=== PATIENT | female | born 1950 | race African-American/Black ===

== ENCOUNTER 2017-10-08 14:26 | Emergency (ER) | payer OTHER, MEDICAID ==
[~2017-10-08] VITALS: Ht 162.6 cm; Wt 112.0 kg
[2017-10-08 14:44] VITALS: BP 154/69
[2017-10-08] MEDS ORDERED: LIDOCAINE HCL 1% 20ML VIAL (Pyxis) INJ INFIL ONE (15:30)
[2017-10-08] MEDS ORDERED: CEFTRIAXONE SODIUM 1 G/VIAL IM ONE (15:30)
== END 2017-10-08 16:39 | disposition home or self-care (01) ==
LOC: ER 15:50
DX: L03.116 Cellulitis of left lower limb (principal); I10 Essential (primary) hypertension; Z87.891 Personal history of nicotine dependence; Z98.890 Other specified postprocedural states
CPT/HCPCS: 87070; 87077; 87186; 87205; 96372; 99284; J0696; J3490

== ENCOUNTER 2020-07-31 21:56 | Emergency (ER) | payer OTHER, MEDICAID ==
[~2020-07-31] VITALS: Ht 167.6 cm; Wt 113.0 kg
[2020-08-01] MEDS ORDERED: GABA-532 MT (00:08)
[2020-08-01] MEDS ORDERED: HYDR25TA MT (00:08)
[2020-08-01] MEDS ORDERED: AMOX-424 MT (00:09)
[2020-08-01 00:30] VITALS: BP 145/63
== END 2020-08-01 01:04 | disposition home or self-care (01) ==
LOC: ER 21:56
DX: L03.116 Cellulitis of left lower limb (principal); L03.115 Cellulitis of right lower limb; M79.605 Pain in left leg; M79.604 Pain in right leg; G89.29 Other chronic pain; R60.9 Edema, unspecified; I11.9 Hypertensive heart disease without heart failure; Z98.890 Other specified postprocedural states
CPT/HCPCS: 93005; 99283

== ENCOUNTER 2021-02-04 04:12 | Emergency (ER) | payer OTHER, MEDICAID ==
[~2021-02-04] VITALS: Ht 167.6 cm; Wt 107.0 kg
[~2021-02-04 04:12] MED LIST: AMOX-424 MT; GABA-532 MT; HYDR25TA MT
[2021-02-04 04:42] VITALS: BP 161/76
[2021-02-04 08:45] LABS: BASOPHILS % 1.1 % (0.0-2.0); EOSINOPHILS % 3.8 % (0.0-5.0); HEMATOCRIT. 36.9 % (36.0-48.0); HEMOGLOBIN. 12.3 g/dL (12.0-16.0); LYMPHOCYTES % 28.9 % (20.0-50.0); MEAN CORPUSCULAR HEMOGLOBIN 26.4 pg (28.0-32.0); MEAN CORPUSCULAR VOLUME 79.5 fL (81.0-99.0); MEAN PLATELET VOLUME 7.6 fl (7.4-10.4); MONOCYTES % 8.4 % (2.0-8.0); NEUTROPHILS % 57.8 % (40.0-76.0); PLATELET 276 x1000/uL (130-400); RED BLOOD CELL COUNT 4.64 mill/uL (4.2-5.4); RED CELL DISTRIBUTION WIDTH 14.7 % (11.6-14.6)
[2021-02-04 08:48] LABS: CHLORIDE 105 mEq/L (98-107)
[2021-02-10] MEDS ORDERED: NEOM1PAC6 TP (04:28)
[2021-02-10] MEDS ORDERED: BACI3.5O24 TOP (04:28)
[2021-02-10] MEDS ORDERED: SULF1TAB48 PO (04:28)
[2021-02-10] MEDS ORDERED: MUPI1OIN4 TP (04:28)
== END 2021-02-04 10:36 | disposition home or self-care (01) ==
LOC: ER 04:12
DX: R60.0 Localized edema (principal); I11.9 Hypertensive heart disease without heart failure
CPT/HCPCS: 36415; 80053; 83880; 85025; 85379; 93970; 99284

== ENCOUNTER 2023-03-18 14:20 | Emergency (ER) | payer MEDICAID, OTHER ==
[~2023-03-18] VITALS: Ht 167.6 cm; Wt 113.0 kg
[~2023-03-18 14:20] MED LIST changes: +BACI3.5O24 TOP; +MUPI1OIN4 TP; +NEOM1PAC6 TP; +SULF1TAB48 PO
[2023-03-18 14:31] VITALS: O2SAT 99
[2023-03-18] MEDS ORDERED: TOPUD MT (15:59)
[2023-03-18] MEDS ORDERED: HYDROCODONE/ACETAMINOPHEN 5/325MG TABLET PO ONE (16:15)
[2023-03-18] MEDS ORDERED: LIDOCAINE 5% PATCH TOP SCH (16:15)
[2023-03-18] MEDS ORDERED: WALK1EAC55 MC (16:43)
[2023-03-18 16:45] VITALS: BP 128/85; PULSE 98; RESP 18; TEMP 98.7
== END 2023-03-18 19:30 | disposition home or self-care (01) ==
LOC: ER 14:41
DX: R20.2 Paresthesia of skin (principal); G45.9 Transient cerebral ischemic attack, unspecified; Z90.89 Acquired absence of other organs; Z98.890 Other specified postprocedural states; Z98.51 Tubal ligation status
CPT/HCPCS: 73502; 73552; 99284